=== PATIENT | female | born 1975 | race Caucasian/White ===

== ENCOUNTER → 2017-03-23 | Outpatient (CLI) | payer OTHER ==
[~2017-03-23] MED LIST: PRENTAB26 PO; [UNRECOGNIZED DRUG - CODE] PO
--- NOTE | 2017-03-23 10:08 | DIAGNOSTIC IMAGING REPORT ---
MRI OF THE RIGHT KNEE CLINICAL HISTORY: Right knee pain and swelling. Fall. COMPARISON STUDY: No priors. TECHNIQUE: MRI of the right knee was performed utilizing proton density, T1, and T2-weighted sequences in the axial, sagittal, coronal planes. IV contrast was not administered for this examination. Note that interpretation is suboptimal without plain film correlate. FINDINGS: Menisci: The medial and lateral menisci are intact. Mild mucoid degeneration is suggested in the posterior horn of the medial meniscus. Ligaments: The anterior and posterior cruciate ligaments are intact. There is evidence of grade 2 injury of the medial collateral ligament with significant overlying soft tissue edema and trace fluid. The lateral collateral ligament complex appears intact. Extensor mechanism: The extensor mechanism is intact. Hoffa's fat pad is normal in appearance. Articular cartilage and bone: The articular cartilage is intact and well maintained all 3 compartments. There is minimal bony contusions seen within the posterior aspect of the lateral tibial plateau. There is no MRI evidence of fracture. There is bony overgrowth along the anterior tibial tuberosity. Joint effusion: There is a small joint effusion. Soft tissues: Mild prepatellar soft tissue edema is noted. There is deep soft tissue edema identified along the medial aspect of the knee. The musculature surrounding the knee joint is normal in bulk and signal intensity. IMPRESSION: 1. Findings are consistent with a grade 2 injury of the medial collateral ligament with overlying soft tissue edema and fluid. 2. The cruciate ligaments, the menisci, and the lateral collateral ligament complex are preserved. 3. Small joint effusion. 4. Mild bony contusion is seen within the posterior aspect of the lateral tibial plateau. There is no MRI evidence of fracture. Electronically signed by: Christopher Durant M.D. 03/23/2017 10:06 AM Dictated Date/Time: 03/23/2017 10:02 AM
== END | disposition home or self-care (01) ==
LOC: C.MRIBC 08:49
PROVIDERS: ATTEND Physician Assistant
DX: S89.91XA Unspecified injury of right lower leg, initial encounter (principal); X58.XXXA Exposure to other specified factors, initial encounter; R29.898 Other symptoms and signs involving the musculoskeletal system; M25.461 Effusion, right knee